=== PATIENT | female | born 1975 | race Caucasian/White ===

== ENCOUNTER 2019-11-25 12:08 | Emergency (ER) | payer BC ==
[2019-11-25] MEDS ORDERED: SODIUM CHLORIDE 0.9% 1,000 ML IV ONE (12:51)
[2019-11-25] MEDS ORDERED: diphenhydrAMINE 50 MG/ML 1 ML VIAL IVP STA (12:51)
[2019-11-25] MEDS ORDERED: methylPREDNISolone SOD SUCCI 125 MG/2 ML VIAL IV STA (12:51)
[2019-11-25] MEDS ORDERED: cefTRIAXone IN SWFI 1,000 MG/10 ML SYRINGE IVP STA (12:51)
[2019-11-25] MEDS ORDERED: DIPH,PERTUS(ACELL)TETVAC-LF 0.5 ML VIAL IM ONE (12:53)
--- NOTE | 2019-11-25 13:02 | ED ---
Skin/Abscess/FB HPI - General Source: patient, RN notes reviewed, old records reviewed Mode of arrival: ambulatory Limitations: no limitations <Jessenia Guzman - Last Filed: 11/25/19 14:51> <Lexis Pablo - Last Filed: 11/25/19 16:05> - General Chief complaint: Skin/Abscess/Foreign Body Stated complaint: bee sting Time Seen by Provider: 11/25/19 12:28 - History of Present Illness Initial comments: Patient's a 44-year-old female presents to the ER today for evaluation for complaints of right arm pain and redness and swelling. She reports that she was stung 2 days ago on the back of her arm which she suspected to be a bee. She states that she had significant erythema and did take Benadryl. She reports she talked to an urgent care yesterday who started her on Keflex and Benadryl and Pepcid. She states that she's not been started on steroids. She presents the ER today because they are redness and swelling is now doubled in size and is now firm to touch on the upper arm. (Jessenia Guzman) - Related Data Home Medications Medication Instructions Recorded Confirmed Acetaminophen Tab [Tylenol Tab] 650 mg PO Q4H PRN 08/05/15 08/05/15 Ibuprofen [Advil] 200 mg PO Q6HR PRN 08/05/15 08/05/15 Melatonin 3 mg PO HS PRN 08/05/15 08/05/15 Omeprazole 20 mg PO DAILY 08/05/15 08/05/15 Previous Rx's Medication Instructions Recorded Ibuprofen [Motrin] 800 mg PO Q8HR PRN #21 tab 08/05/15 Prochlorperazine [Compazine] 10 mg PO Q8H PRN #12 tab 08/05/15 diphenhydrAMINE [Benadryl] 25 mg PO HS PRN #12 capsule 08/05/15 Famotidine [Pepcid] 20 mg PO BID #12 tablet 11/25/19 diphenhydrAMINE [Benadryl] 25 mg PO Q6H PRN #20 capsule 11/25/19 predniSONE [Deltasone] 20 mg PO DIRECTED #12 tab 11/25/19 Allergies Allergy/AdvReac Type Severity Reaction Status Date / Time sulfamethoxazole Allergy Rash/Hives Verified 11/25/19 12:15 [From Bactrim] trimethoprim [From Bactrim] Allergy Rash/Hives Verified 11/25/19 12:15 Review of Systems ROS Other: All systems not noted in ROS Statement are negative. <Jessenia Guzman - Last Filed: 11/25/19 14:51> ROS Other: All systems not noted in ROS Statement are negative. <Lexis Pablo Larissa - Last Filed: 11/25/19 16:05> ROS Statement: Those systems with pertinent positive or pertinent negative responses have been documented in the HPI. Past Medical History Past Medical History: Hypertension History of Any Multi-Drug Resistant Organisms: None Reported Past Surgical History: Appendectomy, Tubal Ligation Past Psychological History: No Psychological Hx Reported Smoking Status: Current every day smoker Past Alcohol Use History: None Reported Past Drug Use History: None Reported <Jessenia Guzman - Last Filed: 11/25/19 14:51> General Exam Limitations: no limitations General appearance: alert, in no apparent distress Head exam: Present: atraumatic, normocephalic, normal inspection Eye exam: Present: normal appearance, PERRL, EOMI. Absent: scleral icterus, conjunctival injection, periorbital swelling ENT exam: Present: normal exam, mucous membranes moist Neck exam: Present: normal inspection. Absent: tenderness, meningismus, lymphadenopathy Respiratory exam: Present: normal lung sounds bilaterally. Absent: respiratory distress, wheezes, rales, rhonchi, stridor Cardiovascular Exam: Present: regular rate, normal rhythm, normal heart sounds. Absent: systolic murmur, diastolic murmur, rubs, gallop, clicks GI/Abdominal exam: Present: soft, normal bowel sounds. Absent: distended, tenderness, guarding, rebound, rigid Extremities exam: Present: normal inspection, full ROM, normal capillary refill, other (Patient has erythema on the right upper inner arm. The area extends from the elbow to the upper axilla. Area is firm to touch). Absent: tenderness, pedal edema, joint swelling, calf tenderness Back exam: Present: normal inspection Neurological exam: Present: alert, oriented X3, CN II-XII intact Psychiatric exam: Present: normal affect, normal mood Skin exam: Present: warm, dry, intact, normal color. Absent: rash <Jessenia Guzman - Last Filed: 11/25/19 14:51> - General Exam Comments Initial Comments: 44-year-old female. Alert and oriented. No distress. (Jessenia Guzman) Course Vital Signs 11/25/19 11/25/19 11/25/19 12:11 13:14 14:00 Temperature 97.8 F Pulse Rate 87 Respiratory 16 18 18 Rate Blood Pressure 180/129 173/104 O2 Sat by Pulse 100 100 Oximetry 11/25/19 11/25/19 15:00 15:22 Temperature 97.9 F 97.9 F Pulse Rate 89 89 Respiratory 18 18 Rate Blood Pressure 181/100 181/100 O2 Sat by Pulse 100 100 Oximetry Medical Decision Making - Lab Data Result diagrams: 11/25/19 13:20 11/25/19 13:20 - Radiology Data Radiology results: report reviewed <Jessenia Guzman - Last Filed: 11/25/19 14:51> - Lab Data Result diagrams: 11/25/19 13:20 11/25/19 13:20 <Lexis Pablo - Last Filed: 11/25/19 16:05> - Medical Decision Making 34-year-old female presents the ER today for evaluation for bee sting on the right upper arm. She has significant ALLERGIC reaction with erythema from the upper arm to the elbow. Full range of motion. Ultrasound was completed and shows no DVT or soft tissue mass. Patient was given IV Solu-Medrol Benadryl and does report improvement of redness and swelling. Patient was also given 1 dose of Rocephin if her for cellulitis. Will advise the Patient to continue Keflex. Add steroids and continue antihistamines. Discussed return parameters. (Amairani Guzmanily) I was available for consultation in the emergency department. The history and physical exam were done by the midlevel provider. I was consulted for this obey ents care. I reviewed the case with the midlevel provider and based on their presentation of the patient, I agree with the assessment, medical decision making and plan of care as documented. Chart was dictated using [employer] dictation software. Attempts were made to correct any dictation errors however some typographical errors may persist. (Lexis Pablo) - Lab Data Lab Results 11/25/19 11/25/19 Range/Units 13:20 13:20 WBC 10.9 H (3.8-10.6) k/uL RBC 5.46 H (3.80-5.40) m/uL Hgb 14.9 (11.4-16.0) gm/dL Hct 46.8 H (34.0-46.0) % MCV 85.7 (80.0-100.0) fL MCH 27.2 (25.0-35.0) pg MCHC 31.8 (31.0-37.0) g/dL RDW 16.3 H (11.5-15.5) % Plt Count 341 (150-450) k/uL Neutrophils % 67 % Lymphocytes % 26 % Monocytes % 3 % Eosinophils % 2 % Basophils % 0 % Neutrophils # 7.3 (1.3-7.7) k/uL Lymphocytes # 2.9 (1.0-4.8) k/uL Monocytes # 0.3 (0-1.0) k/uL Eosinophils # 0.3 (0-0.7) k/uL Basophils # 0.0 (0-0.2) k/uL Anisocytosis Slight Sodium 142 (137-145) mmol/L Potassium 4.0 (3.5-5.1) mmol/L Chloride 104 (98-107) mmol/L Carbon Dioxide 28 (22-30) mmol/L Anion Gap 10 mmol/L BUN 9 (7-17) mg/dL Creatinine 0.63 (0.52-1.04) mg/dL Est GFR (CKD-EPI)AfAm >90 (>60 ml/min/1.73 sqM) Est GFR (CKD-EPI)NonAf >90 (>60 ml/min/1.73 sqM) Glucose 89 (74-99) mg/dL Calcium 9.4 (8.4-10.2) mg/dL Total Bilirubin 0.4 (0.2-1.3) mg/dL AST 25 (14-36) U/L ALT 23 (4-34) U/L Alkaline Phosphatase 77 (38-126) U/L Total Protein 8.5 H (6.3-8.2) g/dL Albumin 5.0 (3.5-5.0) g/dL - Radiology Data Ultrasound was 80 for DVT. (Jessenia Guzman) Disposition Is patient prescribed a controlled substance at d/c from ED?: No Time of Disposition: 14:52 <Jessenia Guzman - Last Filed: 11/25/19 14:51> <GeorgesjoaquinLexis - Last Filed: 11/25/19 16:05> Clinical Impression: Allergic reaction to bee sting Disposition: HOME SELF-CARE Condition: Good Instructions (If sedation given, give patient instructions): Insect Bite or Sting (ED) Additional Instructions: Please use medication as discussed. Take the antibiotic as prescribed. Please follow up with family doctor if symptoms have not improved over the next two days. Please return to the emergency room if your symptoms increase or worsen or for any other concerns. Prescriptions: diphenhydrAMINE [Benadryl] 25 mg PO Q6H PRN #20 capsule PRN Reason: Itching predniSONE [Deltasone] 20 mg PO DIRECTED #12 tab Famotidine [Pepcid] 20 mg PO BID #12 tablet Referrals: Saulo Ralph MD [Primary Care Provider] - 1-2 days
[2019-11-25 13:34] LABS: Anisocytosis Slight; Basophils % (A) 0 %; Eosinophils # (A) 0.3 k/uL (0-0.7); Eosinophils % (A) 2 %; HCT 46.8 % (34.0-46.0); HGB 14.9 gm/dL (11.4-16.0); Lymphocytes # (A) 2.9 k/uL (1.0-4.8); Lymphocytes % (A) 26 %; MCH 27.2 pg (25.0-35.0); MCHC 31.8 g/dL (31.0-37.0); MCV 85.7 fL (80.0-100.0); Mean Platelet Volume 6.8; Monocytes # (A) 0.3 k/uL (0-1.0); Monocytes % (A) 3 %; Neutrophils # (A) 7.3 k/uL (1.3-7.7); Neutrophils % (A) 67 %; Platelet Count 341 k/uL (150-450); RBC 5.46 m/uL (3.80-5.40); RDW 16.3 % (11.5-15.5); WBC 10.9 k/uL (3.8-10.6)
[2019-11-25 13:45] LABS: ALT 23 U/L (4-34); AST 25 U/L (14-36); African American GFR (CKD) >90 (>60 ml/min/1.73 sqM); Alkaline Phosphatase 77 U/L (38-126); Anion Gap 10 mmol/L; Blood Urea Nitrogen 9 mg/dL (7-17); Calcium 9.4 mg/dL (8.4-10.2); Carbon Dioxide 28 mmol/L (22-30); Chloride 104 mmol/L (98-107); Glucose 89 mg/dL (74-99); Non-African American GFR(CKD) >90 (>60 ml/min/1.73 sqM); Sodium 142 mmol/L (137-145); Total Bilirubin 0.4 mg/dL (0.2-1.3); Total Protein 8.5 g/dL (6.3-8.2)
--- NOTE | 2019-11-25 14:28 | US ---
EXAMINATION TYPE: US venous doppler duplex UE RT DATE OF EXAM: 11/25/2019 COMPARISON: NONE CLINICAL HISTORY: superficial phlebitis vs collection abscess. SIDE PERFORMED: Right Right Arm: Negative for DVT IMPRESSION: 1. Right upper extremity venous ultrasound negative for deep venous thrombosis.
[2019-11-25 15:21] VITALS: RESP 18
[2019-11-25 15:22] VITALS: BP 181/100; PULSE 89; TEMP 97.9
== END 2019-11-25 15:23 | disposition home or self-care (01) ==
LOC: EC 12:08
DX: T63.441A Toxic effect of venom of bees, accidental (unintentional), initial encounter (principal); L53.9 Erythematous condition, unspecified; F17.200 Nicotine dependence, unspecified, uncomplicated; Z79.899 Other long term (current) drug therapy; Z88.2 Allergy status to sulfonamides; Z88.1 Allergy status to other antibiotic agents; Z23 Encounter for immunization
CPT/HCPCS: 36415; 80053; 85025; 87040; 93971; 90715; 99284; 96374; 96375 ×2; 90471; 96361; J1200; J2930; J0696

== ENCOUNTER → 2023-09-21 | Outpatient (CLI) | payer BC ==
[2023-09-21 10:14] LABS: Basophils # (A) 0.07 X 10*3/uL (0.00-0.10); Basophils % (A) 0.5 %; Eosinophils # (A) 0.12 X 10*3/uL (0.04-0.35); Eosinophils % (A) 0.9 %; HCT 45.6 % (37.2-46.3); HGB 15.1 g/dL (12.0-15.0); Lymphocytes # (A) 2.97 X 10*3/uL (0.90-5.00); Lymphocytes % (A) 22.9 %; MCH 30.3 pg (27.0-32.0); MCHC 33.1 g/dL (32.0-37.0); MCV 91.6 FL (80.0-97.0); Mean Platelet Volume 9.7 FL (9.5-12.2); Monocytes # (A) 0.61 X 10*3/uL (0.20-1.00); Monocytes % (A) 4.7 %; NRBC Per 100 WBC 0 X 10*3/uL (0.00-0.01); Neutrophils # (A) 9.12 X 10*3/uL (1.80-7.70); Neutrophils % (A) 70.5 %; Platelet Count 392 X 10*3/uL (140-440); RBC 4.98 X 10*6/uL (4.10-5.20); RDW 13.9 % (11.5-14.5); WBC 12.95 X 10*3/uL (4.50-10.00)
[2023-09-21 10:42] LABS: ALT 21 U/L (8-44); AST 20 U/L (13-35); Albumin 4.6 g/dL (3.8-4.9); Albumin/Globulin Ratio 1.84 Ratio (1.60-3.17); Alkaline Phosphatase 104 U/L (41-126); BUN/Creat Ratio 11.25 Ratio (12.00-20.00); Calcium 9.9 mg/dL (8.7-10.3); Chloride 102 mmol/L (96-109); Globulin 2.5 g/dL (1.6-3.3); Glucose 92 mg/dL (70-110); LDL Cholesterol,Calculated 152.7 mg/dL (0.0-131.0); Potassium 4.8 mmol/L (3.5-5.5); Sodium 139 mmol/L (135-145); Total Bilirubin 0.4 mg/dL (0.3-1.2); Total Protein 7.1 g/dL (6.2-8.2)
[2023-09-21 11:53] LABS: Follicle Stimulating Hormone 25.1 mIU/mL; Luteinizing Hormone 29.6 mIU/mL
[2023-09-21 12:14] LABS: Erythrocyte Sedimentation Rate 30 mm/Hr (0-20)
== END | disposition home or self-care (01) ==
LOC: LABWHC1 07:47
PROVIDERS: ATTEND Family Medicine
DX: Z00.00 Encounter for general adult medical examination without abnormal findings (principal); G43.909 Migraine, unspecified, not intractable, without status migrainosus; Z78.0 Asymptomatic menopausal state
CPT/HCPCS: 36415; 80053; 80061; 82306; 82671; 83001; 83002; 84443; 85025; 85652; 86140

== ENCOUNTER → 2023-10-12 | Outpatient (CLI) | payer BC ==
--- NOTE | 2023-11-01 20:13 | MM ---
Reason for Exam: Screening (asymptomatic). Last mammogram was performed 12 year(s) and 11 month(s) ago. Patient History: Menarche at age 8. First Full-Term at age 23. Patient used Hormonal Contraceptives for 6 years. Maternal grandmother had breast cancer. Maternal aunt had breast cancer. Risk Values: Uadra 5 year model risk: 0.9%. NCI Lifetime model risk: 8.9%. Prior Study Comparison: No prior studies available for comparison. Tissue Density: There are scattered areas of fibroglandular density. Findings: No significant mass, suspicious microcalcification, or other discrete abnormality seen. Overall Assessment: Negative, BI-RAD 1 Management: Screening Mammogram of both breasts in 1 year. Patient should continue monthly self-breast exams. A clinical breast exam by your physician is recommended on an annual basis. This exam should not preclude additional follow-up of suspicious palpable abnormalities. Note on Audra scores and lifetime risk: 1. A Audra score greater than 3% is considered moderate risk. If this is the case, consider specialist referral to assess eligibility for a risk reducing agent. 2. If overall lifetime risk for the development of breast cancer is 20% or higher, the patient may qualify for future screening with alternating mammogram and breast MRI. Electronically signed and approved by: Mirela Hastings M.D. Radiologist
== END | disposition home or self-care (01) ==
LOC: RADMAMWWP 13:24
PROVIDERS: ATTEND Family Medicine
DX: Z12.31 Encounter for screening mammogram for malignant neoplasm of breast
CPT/HCPCS: 77063; 77067

== ENCOUNTER → 2023-11-05 | Outpatient (CLI) | payer BC | END | disposition home or self-care (01) | LOC: LABWHC1 15:31 | PROVIDERS: ATTEND Family Medicine | DX: E03.9 Hypothyroidism, unspecified (principal) | CPT/HCPCS: 36415; 84443 ==

== ENCOUNTER → 2024-04-21 | Outpatient (CLI) | payer BC ==
[2024-04-21 10:44] LABS: Chol/HDL Ratio 6.06 Ratio; LDL Cholesterol,Calculated 223.2 mg/dL (0.0-131.0)
== END | disposition home or self-care (01) ==
LOC: LABWHC1 07:11
PROVIDERS: ATTEND Nurse Practitioner
DX: E78.00 Pure hypercholesterolemia, unspecified (principal); E03.9 Hypothyroidism, unspecified
CPT/HCPCS: 36415; 80061; 84443